=== PATIENT | female | born 1950 | race Caucasian/White ===

== ENCOUNTER 2017-07-10 07:47 | Emergency (ER) | payer OTHER, MEDICARE ==
[2017-07-10] MEDS ORDERED: Pantoprazole 40 MG VIAL ONE (07:59)
[2017-07-10 08:11] LABS: #Eosinphils 0.1 thou/uL (0.0-0.7); #Lymphocytes 1.2 thou/uL (1.20-3.40); #Monocytes 0.4 thou/uL (0.11-0.59); #Neutrophils 1.7 thou/uL (1.40-6.50); %Eosinophils 1.9 % (0.0-10.0); %Lymphocytes 35.3 % (21.0-51.0); %Monocytes 10.6 % (0.0-10.0); %Neutrophils 51.2 % (42.0-75.0); Hemoglobin 11.5 g/dL (12.0-16.0); Mean Corpuscular HGB CONC 33.1 g/dL (32.0-36.0); Mean Corpuscular Hemoglobin 32.3 pg (27.0-31.0); Mean Corpuscular Volume 97.6 fl (81.0-99.0); Mean Platelet Volume 6.4 fL (7.4-10.4); Platelet Count 89 thou/uL (130-400); RBC Distribution Width 11.7 % (11.5-14.5); Red Blood Cell (RBC) Count 3.57 mill/uL (4.20-5.40); White Blood Cell (WBC) Count 3.4 thou/uL (4.8-10.8)
[2017-07-10 08:19] LABS: ALT (SGPT) 19 U/L (8-55); AST (SGOT) 28 U/L (5-34); Albumin 3.7 g/dL (3.4-4.8); Alkaline Phosphatase 133 U/L (40-150); Anion Gap 12 mmol/L (10-20); BUN (Urea Nitrogen) 13 mg/dL (9.8-20.1); Bilirubin, Total 2.3 mg/dL (0.2-1.2); Calc. Creatinine Clearance 0 mL/min (70-130); Calcium 9.6 mg/dL (7.8-10.44); Carbon Dioxide 24 mmol/L (23-31); Chloride 109 mmol/L (98-107); Estimated GFR-MDRD Greater than 90; Globulin 2.8 g/dL (2.4-3.5); Glucose 95 mg/dL (80-115); Potassium 4.1 mmol/L (3.5-5.1); Protein, Total 6.5 g/dL (6.0-8.3); Sodium 141 mmol/L (136-145)
[2017-07-10 08:21] LABS: Troponin I Less than 0.010 ng/mL (< 0.028)
[2017-07-10 08:28] LABS: PLT Morphology Comment Appears Decreased; RBC Morphology Normal
--- NOTE | 2017-07-10 16:47 | RAD ---
PORTABLE CHEST 07/10/17 An AP portable film at 0754 is compared with an 04/10/16 study. There has been no adverse change. The heart is normal in size and the lungs are clear. There is no va scular congestion, edema, or pleural effusion. IMPRESSION: No acute thoracic findings. POS: HOME
== END 2017-07-10 08:46 | disposition home or self-care (01) ==
LOC: BURERS 07:47
DX: R07.2 Precordial pain (principal); K74.60 Unspecified cirrhosis of liver; B19.20 Unspecified viral hepatitis C without hepatic coma; F41.9 Anxiety disorder, unspecified; F32.9 Major depressive disorder, single episode, unspecified; Z87.891 Personal history of nicotine dependence; Z79.899 Other long term (current) drug therapy
CPT/HCPCS: 71010; 80053; 82553; 84484; 85025; 85379; 93005; 96374; C9113

== ENCOUNTER 2019-01-31 17:30 | Emergency (ER) | payer MEDICARE, OTHER ==
[2019-01-31] MEDS ORDERED: Adacel (T-DAP) 0.5 ML SYRINGE ONE (17:53)
== END 2019-01-31 18:02 | disposition home or self-care (01) ==
LOC: BURERS 17:30
DX: S61.411A Laceration without foreign body of right hand, initial encounter (principal); F41.9 Anxiety disorder, unspecified; F32.9 Major depressive disorder, single episode, unspecified; Z87.891 Personal history of nicotine dependence; Z79.899 Other long term (current) drug therapy; W26.0XXA Contact with knife, initial encounter
CPT/HCPCS: 12001; 90471; 90715

== ENCOUNTER 2020-08-20 18:34 | Emergency (ER) | payer MEDICARE ==
[2020-08-20] MEDS ORDERED: Fluorescein Opthalmic Strip ONE (19:28)
[2020-08-20] MEDS ORDERED: Tetracaine 0.5% PF 4 ML BOT ONE (19:28)
[2020-08-20] MEDS ORDERED: Erythromycin Base 0.5% Ophth Oint 3.5 gm Tube ONE (19:43)
== END 2020-08-20 20:14 | disposition home or self-care (01) ==
LOC: BURERS 18:34
DX: U07.1 COVID-19 (principal); S05.02XA Injury of conjunctiva and corneal abrasion without foreign body, left eye, initial encounter; Z87.891 Personal history of nicotine dependence; Z79.899 Other long term (current) drug therapy; W45.8XXA Other foreign body or object entering through skin, initial encounter
CPT/HCPCS: 65205

== ENCOUNTER 2024-10-29 19:23 | Emergency (ER) | payer MEDICARE ==
[2024-10-29] MEDS ORDERED: Acetaminophen 325 MG TAB ONE (19:57)
[2024-10-29] MEDS ORDERED: Ondansetron ODT 4 MG TAB ONE (19:58)
[2024-10-29] MEDS ORDERED: HYDROcodone/Acetaminophen 10/325 mg Tablet ONE (19:58)
[2024-10-29 20:43] LABS: Bilirubin Negative (Negative); Blood, Urine Negative (Negative); Clarity Clear (Clear); Glucose, Urine (Dipstick) Negative (Negative); Ketone, Urine Negative (Negative); Leukocyte Trace (Negative); Nitrite Negative (Negative); Protein, Urine (Dipstick) Negative (Neg-Trace); Specific Gravity, Urine 1.015 (1.005-1.030); pH, Urine 6.5 (5.0-9.0)
[2024-10-29 20:50] LABS: CAUTI Indications for Culture Dysuria,urgency,freq; RBC/HPF None Seen HPF (0-3); WBC/HPF 0-3 HPF (0-3)
[2024-10-29 20:51] LABS: Bacteria/HPF Rare-Few HPF (None Seen); Squamous Epithelial 0-3 HPF (0-3)
[2024-10-29 20:52] LABS: Urine Culture Reflex No No
[2024-10-29] MEDS ORDERED: Cephalexin 250 MG CAP ONE (21:20)
[2024-10-29] MEDS ORDERED: HYDROcodone/Acetaminophen 5/325 mg Tablet ONE (22:02)
== END 2024-10-29 22:53 | disposition home or self-care (01) ==
LOC: BURERS 19:23
DX: M54.16 Radiculopathy, lumbar region (principal); N39.0 Urinary tract infection, site not specified; R93.7 Abnormal findings on diagnostic imaging of other parts of musculoskeletal system; Z87.891 Personal history of nicotine dependence
CPT/HCPCS: 72131; 81001; Q0162

== ENCOUNTER 2025-02-05 10:57 | Emergency (ER) | payer MEDICARE ==
[2025-02-05] MEDS ORDERED: Ketorolac Tromethamine 30 MG (1 mL) VIAL ONE (11:13)
[2025-02-05 11:16] LABS: Hematocrit 39.6 % (36.0-47.0); Hemoglobin 13.7 g/dL (12.0-16.0); Mean Corpuscular HGB CONC 34.7 g/dL (32.0-36.0); Mean Corpuscular Hemoglobin 29.6 pg (27.0-31.0); Mean Corpuscular Volume 85.5 fl (78.0-98.0); Platelet Count 180 10x3/uL (130-400); RBC Distribution Width 11.6 % (11.5-14.5); Red Blood Cell (RBC) Count 4.64 mill/uL (4.20-5.40); White Blood Cell (WBC) Count 5.8 10x3/uL (4.8-10.8)
[2025-02-05 11:30] LABS: ALT (SGPT) 48 U/L (Less than 34); AST (SGOT) 36 U/L (11-34); Albumin 3.9 g/dL (3.1-4.5); Alkaline Phosphatase 100 U/L (40-110); Anion Gap 17 mmol/L (10-20); BUN (Urea Nitrogen) 14 mg/dL (9.8-20.1); Bilirubin, Total 2.3 mg/dL (0.3-1.2); Calc. Creatinine Clearance 0 mL/min (70-130); Calcium 9.3 mg/dL (7.8-10.44); Carbon Dioxide 20 mmol/L (23-31); Chloride 106 mmol/L (98-107); Estimated GFR 94; Globulin 2.9 g/dL (2.4-3.5); Glucose 95 mg/dL (83-110); Potassium 3.8 mmol/L (3.5-5.1); Protein, Total 6.8 g/dL (5.8-8.1); Sodium 139 mmol/L (136-145)
[2025-02-05 11:32] LABS: Troponin I Less than 0.010 ng/mL (< 0.028)
[2025-02-05 11:41] LABS: Eosinophils 2 % (0-10); Lymphocytes 26 % (21-51); MDiff Complete? YES; Monocytes 15 % (0-10); Neutrophil 56 % (42-75)
== END 2025-02-05 12:21 | disposition home or self-care (01) ==
LOC: BURERS 10:57
DX: R07.9 Chest pain, unspecified (principal); Z87.891 Personal history of nicotine dependence
CPT/HCPCS: 71046; 80053; 84484; 85025; 93005; 94760; 96374; J1885

== ENCOUNTER 2025-05-28 18:10 | Emergency (ER) | payer MEDICARE, OTHER ==
[2025-05-28] MEDS ORDERED: Cyclobenzaprine 10 MG TAB ONE (19:49)
== END 2025-05-28 20:54 | disposition home or self-care (01) ==
LOC: BURERS 18:10
DX: S20.212A Contusion of left front wall of thorax, initial encounter (principal); I10 Essential (primary) hypertension; W01.0XXA Fall on same level from slipping, tripping and stumbling without subsequent striking against object, initial encounter; Z87.891 Personal history of nicotine dependence
CPT/HCPCS: 71101; J1885; 96372; 99283